=== PATIENT | female | born 1990 | race African-American/Black ===

== ENCOUNTER 2018-07-18 00:28 | Emergency (ER) | payer SELFPAY ==
[2018-07-18 00:44] VITALS: BP 117/79; PULSE 88; TEMP 98; BMI 34.4
--- NOTE | 2018-07-18 01:52 | PDOC ---
History of Present Illness - General Chief Complaint: Pain Stated Complaint: PAIN,LT FOOT Time Seen by Provider: 07/18/18 01:15 History Source: Patient Exam Limitations: No Limitations - History of Present Illness Initial Comments: 07/18/18 01:50 27y/o F accompanies her to the ED and decided to register for evaluation of L foot/heel pain for 5 months. Worse with initiation of movement, otherwise ambulatory on a daily basis. Possible injury at onset, none since. no f/c, no other complaints. Past History - Past Medical History Allergies/Adverse Reactions: Allergies Allergy/AdvReac Type Severity Reaction Status Date / Time Penicillins Allergy Verified 07/18/18 00:39 sulfamethoxazole Allergy Verified 07/18/18 00:39 [From Bactrim] trimethoprim [From Bactrim] Allergy Verified 07/18/18 00:39 COPD: No - Suicide/Smoking/Psychosocial Hx Smoking History: Never smoked Review of Systems - Review of Systems Cardiac (ROS): No: Edema Musculoskeletal: Yes: See HPI Integumentary: No: Rash Neurological: No: Tingling, Weakness *Physical Exam - Vital Signs Last Vital Signs Temp Pulse Resp BP Pulse Ox 98.0 F 88 18 117/79 100 07/18/18 00:37 07/18/18 00:37 07/18/18 00:37 07/18/18 00:37 07/18/18 00:37 - Physical Exam Comments: 07/18/18 01:51 GENERAL: The patient is awake, alert, and fully oriented, in no acute distress. HEAD: Normal with no signs of trauma. EYES: Pupils equal, round and reactive to light, extraocular movements intact, sclera anicteric, conjunctiva clear. EXTREMITIES: normal foot, no swelling or deformity, slight plantar fascia discomfort, no calcaneus ttp. Normal range of motion, no edema. NEUROLOGICAL: Normal speech, normal gait. PSYCH: Normal mood, normal affect. SKIN: Warm, Dry, normal turgor, no rashes or lesions noted. ED Treatment Course - ADDITIONAL ORDERS Additional order review: Laboratory Results 07/18/18 01:00 Urine HCG, Qual Negative - RADIOLOGY Radiology Studies Ordered: Category Date Time Status FOOT-LEFT [RAD] Stat Radiology 07/18/18 01:24 Ordered Medical Decision Making - Medical Decision Making 07/18/18 01:52 27y/o F with chronic L heel discomfort, nvi without red flags on history or PE. xray reassurance, podiatry/ortho f/u 07/18/18 02:50 on my prelim review, no acute fracture. pt comfortable, d/c with f/u *DC/Admit/Observation/Transfer Diagnosis at time of Disposition: Left foot pain - Discharge Dispostion Disposition: HOME Condition at time of disposition: Stable - Referrals Referrals: Alirio King DPM [Staff Physician] - - Patient Instructions Printed Discharge Instructions: DI for Foot Pain Additional Instructions: Activity as tolerated. Stay hydrated. An xray today shows no acute abnormalities. Tylenol 1000 mg every 8 hours and/or ibuprofen 600 mg every 8 hours as needed for pain. Ice and elevate the affected areas for 20 minutes every 3-4 hours to reduce swelling. You should follow up with a operations research director as soon as possible regarding today's emergency department visit. Return to the emergency department for any new or concerning symptoms, particularly persistent or worsening pain, severe swelling or discoloration, numbness or fevers or chills. - Post Discharge Activity Forms/Work/School Notes: Back to Work
== END 2018-07-18 03:34 | disposition home or self-care (01) ==
LOC: JER 00:28
DX: M79.672 Pain in left foot (principal); Z88.0 Allergy status to penicillin; Z88.2 Allergy status to sulfonamides
CPT/HCPCS: 73630-TC-LT; 84703; 99282-25